=== PATIENT | female | born 1980 | race Caucasian/White ===

== ENCOUNTER 2020-10-28 08:31 | Emergency (ER) | payer BC, MEDICAID ==
[~2020-10-28] VITALS: Ht 152.4 cm; Wt 81.6 kg
--- NOTE | 2020-10-28 08:35 | NUR ---
Patient to ER bed 08 to gown for evaluation. Side rails up.
[2020-10-28 08:36] VITALS: BP_SYST 119
--- NOTE | 2020-10-28 08:40 | NUR ---
PT CAME IN FROM HOME C/O LOWER ABD PAIN, RECTAL BLEEDING, HEMORRHOIDS, EARLIER THAN NORMAL MENSTRAL CYCLE. PT IS AMBULATORY, AAOX4, V/S STABLE
--- NOTE | 2020-10-28 08:56 | NUR ---
ACCOMPANIED DR. REILLY AT BEDSIDE FOR RECTAL EXAM, PT TOLERATED WELL
--- NOTE | 2020-10-28 08:58 | NUR ---
PT ABLE TO AMBULATE TO BATHROOM AND PROVIDE URINE SAMPLE, SPECIMEN SENT TO LAB
[2020-10-28 09:06] LABS: BASOPHILS % (AUTO) 0.5 % (0.0-2.0); EOSINOPHILS # (AUTO) 0.3 K/uL (0.0-0.4); HEMATOCRIT 29.1 % (36-48); HEMOGLOBIN 9.3 g/dL (12.0-16.0); LYMPHOCYTES # (AUTO) 2.4 K/uL (1.0-5.5); LYMPHOCYTES % (AUTO) 27.7 % (20.5-51.5); MEAN CORPUSCULAR HEMOGLOBIN 24 pg (27-31); MEAN CORPUSCULAR HGB CONC 32 % (32-36); MEAN CORPUSCULAR VOLUME 76 fL (79.0-98.0); MONOCYTES % (AUTO) 11.7 % (1.7-9.3); NEUTROPHILS # (AUTO) 4.9 K/uL (1.8-7.7); NEUTROPHILS % (AUTO) 57.1 % (40.0-70.0); PLATELET COUNT (AUTO) 250 K/uL (130-430); RED BLOOD CELL COUNT(AUTO) 3.82 MIL/uL (4.2-6.2); RED CELL DISTRIBUTION WIDTH 15.8 % (9.0-15.0); WHITE BLOOD COUNT (AUTO) 8.6 K/uL (4.8-10.8)
[2020-10-28 09:09] LABS: BILIRUBIN,URINE NEGATIVE (NEGATIVE); BLOOD, URINE 3+ (NEGATIVE); CLARITY/URINE CLEAR (CLEAR); COLOR,URINE YELLOW (YELLOW); GLUCOSE,URINE NEGATIVE (NEGATIVE); KETONES,URINE NEGATIVE (NEGATIVE); LEUKOCYTE ESTERASE ,URINE NEGATIVE (NEGATIVE); NITRITE, URINE NEGATIVE (NEGATIVE); PH,URINE 5.5 (5.0-8.0); PROTEIN URINE TRACE (NEGATIVE); UROBILINOGEN,URINE 0.2 (0.2-1.0)
[2020-10-28 09:16] LABS: CALCIUM 8.2 mg/dL (8.4-11.0); CREATININE 0.85 mg/dL (0.55-1.30); POTASSIUM 3.4 mmol/L (3.5-5.1)
[2020-10-28 09:22] LABS: ALBUMIN 3.2 g/dL (3.4-4.8); TOTAL BILIRUBIN 0.3 mg/dL (0.0-1.0)
[2020-10-28 09:29] LABS: BACTERIA,URINE FEW /HPF (None Seen); RBC,URINE 0-3 /HPF (0-3)
[2020-10-28 09:30] LABS: MUCUS,URINE 1+ /LPF (None Seen)
[2020-10-28 10:38] VITALS: BP_SYST 119
--- NOTE | 2020-10-28 10:44 | NUR ---
Patient given written and verbal discharge instructions and verbalizes understanding. ER MD discussed with patient the results and treatment provided. Patient in stable condition. ID arm band removed. No Rx given. Patient educated on pain management and to follow up with PMD. Pain Scale 0/10 . Opportunity for questions provided and answered. Medication side effect fact sheet provided.
== END 2020-10-28 10:38 | disposition home or self-care (01) ==
LOC: SED 08:31
DX: K62.5 Hemorrhage of anus and rectum (principal); K64.4 Residual hemorrhoidal skin tags; D64.9 Anemia, unspecified
CPT/HCPCS: 36415; 80053; 81000; 81025; 83690; 85025; 99283

== ENCOUNTER 2021-08-29 19:31 | Emergency (ER) | payer BC, MEDICAID ==
[~2021-08-29] VITALS: Ht 152.4 cm; Wt 70.3 kg
[2021-08-29 20:00] VITALS: BP_SYST 110
[2021-08-29] MEDS ORDERED: OXYMETAZOLINE HCL 0.05% NASAL SPRAY NS PRN (20:45)
[2021-08-29 21:54] VITALS: BP_SYST 128
== END 2021-08-29 21:29 | disposition home or self-care (01) ==
LOC: SED 19:31
DX: R04.0 Epistaxis (principal); Z88.8 Allergy status to other drugs, medicaments and biological substances
CPT/HCPCS: 99284

== ENCOUNTER 2021-10-02 05:25 | Day surgery (SDC) | payer BC, MEDICAID ==
[~2021-10-02] VITALS: Ht 152.4 cm; Wt 70.3 kg
[2021-10-02 06:23] LABS: HCG,QUAL RESULT NEGATIVE (NEGATIVE)
[2021-10-02] MEDS ORDERED: KETOROLAC TROMETHAMINE 30 MG VIAL ONE (08:05)
[2021-10-02] MEDS ORDERED: DEXAMETHASONE SOD PHOSPHATE 4 MG/ML VIAL ONE (08:05)
[2021-10-02] MEDS ORDERED: CEFAZOLIN 2 GM IVPB PREMIX 50 ML IV ONE (08:05)
[2021-10-02] MEDS ORDERED: NS IRRIG SOLN 1000 ML IR ONE (08:05)
[2021-10-02] MEDS ORDERED: BUPIVACAINE /PF 0.25% 30 ML VIAL INJ ONE (08:05)
[2021-10-02] MEDS ORDERED: LIDOCAINE 1% 10 MG/ML, 20 ML MDV ONE (08:05)
[2021-10-02] MEDS ORDERED: ONDANSETRON HCL 4 MG/2 ML VIAL ONE (08:05)
[2021-10-02] MEDS ORDERED: fentaNYL CITRATE/PF 100 MCG/2 ML AMP ONE (08:05)
[2021-10-02] MEDS ORDERED: MIDAZOLAM HCL 2 MG/2 ML VIAL (VERSED) ONE (08:05)
[2021-10-02] MEDS ORDERED: LR 1,000 ML IV.SOLN IV ONE (08:05)
[2021-10-02] MEDS ORDERED: PROPOFOL 200MG/ 20ML VIAL (DIPRIVAN) IV ONE (08:05)
[2021-10-02] MEDS ORDERED: MEPERIDINE HCL/PF 25 MG/ML DISP.SYRIN ONE (09:40)
[2021-10-02] MEDS: MEPERIDINE HCL/PF 25 MG/ML DISP.SYRIN IVP ONE (09:45)
[2021-10-02 11:27] VITALS: BP_SYST 134
== END 2021-10-02 11:10 | disposition home or self-care (01) ==
LOC: SDS 05:25
PROVIDERS: ATTEND Surgery
DX: C19 Malignant neoplasm of rectosigmoid junction (principal); G40.909 Epilepsy, unspecified, not intractable, without status epilepticus; Z79.899 Other long term (current) drug therapy; Z20.822 Contact with and (suspected) exposure to COVID-19
CPT/HCPCS: 36415; 36556; 71045; 71046; 76937; 77001; 84703; 87426; C1788; J0690; J1100; J1885; J2001; J2175; J2405; J2704; J3010; J3465; J3490; J7120; U0003; 76000

== ENCOUNTER 2022-06-12 16:17 | Emergency (ER) | payer BC, MEDICAID ==
[~2022-06-12] VITALS: Ht 152.4 cm; Wt 78.9 kg
[2022-06-12 17:54] VITALS: BP_SYST 112
--- NOTE | 2022-06-12 18:05 | NUR ---
PT BIB SELF AWAKE AND ALERT AOX4. NO SOB OR DISTRESS. PT C/O LOOSE STOOL IN HER COLOSTMY BAG X5 DAYS. PT HAS HX OF COLON CANCER AND JUST FINISHED HER CHEM LAST WEEK. PT DENIES VOMITING BUT NAUSOUS. PT DENIES PAIN.
--- NOTE | 2022-06-12 18:07 | NUR ---
MD DR ARREDONDO AT BEDSIDE
[2022-06-12 18:57] VITALS: BP_SYST 125
--- NOTE | 2022-06-12 18:59 | NUR ---
Patient given written and verbal discharge instructions and verbalizes understanding. ER MD DR ARREDONDO discussed with patient the results and treatment provided. Patient in stable condition. ID arm band removed. Patient educated on pain management and to follow up with PMD. Pain Scale 0/10. Opportunity for questions provided and answered. Medication side effect fact sheet provided.
== END 2022-06-12 18:57 | disposition home or self-care (01) ==
LOC: SED 16:17
DX: A08.4 Viral intestinal infection, unspecified (principal); R19.7 Diarrhea, unspecified; R11.0 Nausea; Z88.5 Allergy status to narcotic agent; Z79.899 Other long term (current) drug therapy
CPT/HCPCS: 99282

== ENCOUNTER 2022-07-22 09:01 | Day surgery (SDC) | payer BC, MEDICAID ==
[2022-07-21 08:51] LABS: HCG,QUAL RESULT NEGATIVE (NEGATIVE)
[~2022-07-22] VITALS: Ht 152.4 cm; Wt 79.4 kg
[2022-07-22] MEDS: fentaNYL CITRATE/PF 100 MCG/2 ML AMP ONE ×7 (11:39→11:53)
[2022-07-22] MEDS: MIDAZOLAM HCL 5 MG/5 ML VIAL ONE ×7 (11:39→11:53)
[2022-07-22 16:42] VITALS: BP_SYST 120
== END 2022-07-22 13:05 | disposition home or self-care (01) ==
LOC: SDS 09:01 → SMU 09:03 → SDS 13:05
PROVIDERS: ATTEND Surgery
DX: Z12.11 Encounter for screening for malignant neoplasm of colon (principal); K52.9 Noninfective gastroenteritis and colitis, unspecified; K63.5 Polyp of colon; K64.9 Unspecified hemorrhoids; Z93.3 Colostomy status; Z85.038 Personal history of other malignant neoplasm of large intestine
CPT/HCPCS: 84703; 36415; 44389; 45380; 88305; 99152; 99153; U0003; G0378; J2250; J3010